=== PATIENT | male | born 1975 | race Hispanic/Latino ===

== ENCOUNTER 2021-03-03 06:48 | Inpatient (IN) | payer BC ==
[2021-03-03] VITALS (11 sets, daily range): BP systolic 127–175; BP diastolic 72–93
--- NOTE | 2021-03-03 06:50 | NUR ---
PT ARRIVED VIA EMS - DIRECT BED TO ROOM 10.
--- NOTE | 2021-03-03 07:10 | NUR ---
REPORT GIVEN TO DEVIN SCHULTZ AND DR. CLEMENT
[2021-03-03 08:40] LABS: HEMATOCRIT 45.7 % (39.0-50.0); HEMOGLOBIN 15.3 g/dl (14.0-18.0); IMMATURE GRANULOCYTES 0.4 % (0.0-5.0); MEAN CELL VOLUME 92.5 fL CALC (80.0-100.0); MEAN CORPUSCULAR HGB CONC 33.5 g/dL CAL (32.0-36.0); NEUT# 4.35 thou/uL (1.82-7.42); RED BLOOD COUNT 4.94 mill/uL (4.70-6.10); RED CELL DISTRI WIDTH 13.5 % (11.5-15.5)
[2021-03-03 08:56] LABS: ALBUMIN 3.8 g/dL (3.2-5.0); ALKALINE PHOSPHATASE 80 u/l (38-126); ANION GAP 14 (6-22 (CALC)); BILIRUBIN, TOTAL 1.1 mg/dL (0.0-1.4); BUN 16 mg/dL (9-20); BUN/CREATININE RATIO 18 (12-20 (CALC)); CARBON DIOXIDE 30 mmol/l (22-30); CHLORIDE 94 mmol/l (95-108); CREATININE 0.9 mg/dL (0.7-1.3); GFR > 60 ML/MIN (>=60 (CALC)); GFR FOR AFR.AMER. > 60 ML/MIN (>=60 (CALC)); POTASSIUM 3.1 mmol/l (3.5-5.1); SGOT/AST 47 u/l (17-59); SODIUM 135 mmol/l (137-146); TOTAL PROTEIN 7.5 g/dL (6.3-8.2)
[2021-03-03 09:07] LABS: MYOGLOBIN 16 ng/mL (0 - 121)
--- NOTE | 2021-03-03 09:39 | NUR ---
Reassessment of patient completed. No distress noted.
[2021-03-03 10:15] LABS: ACT PARTIAL THROMBO TIME 26.5 SECONDS (20.0-32.5); INTERNATIONAL NORMALIZED RATIO 1.1 RATIO (0.7-1.3); PROTHROMBIN TIME 11.1 SECONDS (9.0-12.5)
--- NOTE | 2021-03-03 11:16 | NUR ---
REPORT CALLED TO ICU, DR. LAURYN MANZANO
--- NOTE | 2021-03-03 12:05 | NUR ---
PATIENT CAME ONTO FLOOR FROM ER.
--- NOTE | 2021-03-03 12:10 | NUR ---
Admission Note Report Given to: SBAR PRINTED TO FLOOR Transported by: Wheelchair X Stretcher Transported with: X Nurse Transporter X Patent IV X O2 X Waterproofer Helper Location: X ICU MS2
--- NOTE | 2021-03-03 12:24 | NUR ---
transported pt to icu from er. pt sudha well. placed on vapotherm upon arrival to icu. titrated as per pt spo2 and wob. campus president to monitor,
--- NOTE | 2021-03-03 12:30 | NUR ---
PATIENT A/O X3. SETTLED DOWN IN BED. DENIES PAIN AT THIS MOMENT. DOES COMPLAIN OF SLIGHT DIZZINESS DUE TO WALKING FROM STRETCHER TO BED. VITALS SIGNS ARE WITHIN NORMAL RANAGE. RT AT BEDSIDE ADJUSTING VAPOTHERM. SOB NOTED. DMINISHED LUNG SOUNDS THROUGH OUT. FOLLOWS COMMANDS. RUNS SINUS TACH WHEN GETTING UP TO BED FROM STRETCHER AND DID BECOME SOB WITH SATS MID TO UPPER 80'S WITH WALKING. STEADY GAIT, STAND BY ASSIST. BEDSIDE COMMODE AT BEDSIDE. SAFETY SOCKS PLACED ON FEET PRIOR TO WALKING. ACTIVE BOWEL SOUNDS. NO OPEN AREAS AT THIS TIME. NO EDEMA PRSENT. STRONG PULSES. STRONG EQUAL HAND ACCOUNTS RECEIVABLE ANALYST. SPOKE TO WHILE ASSESSING PATIENT GAVE HER THE CODE TO CALL US WHEN SHE WANTS UPDATES. REVIWED CALL LIGHT AND PATIENTS RIGHT WITH PATIENT AT BEDSIDE. PATIENT STATED HE UNDERSTOOD AND SIGNED THAT HE AGREED TO THE CALL DO NOT FALL SHEET. FILLED OUT BELONGINGS SHEET. PATIENT IS COVID+ WILL REMAIN IN NEGATIVE PRESSURE ROOM. HAS DRY NON PRODUCTIVE COUGH. SAFETY MEASURES IN PLACE. CALL LIGHT IN REACH. WILL CONTINUE TO MONITOR.
[2021-03-03 12:46] LABS: URINE BILIRUBIN - DIPSTICK NEGATIVE (NEGATIVE); URINE BLOOD DIPSTICK NEGATIVE (NEGATIVE); URINE COLOR YELLOW; URINE GLUCOSE - DIPSTICK 250 mg/dL (NEGATIVE); URINE KETONE 15 mg/dL (NEGATIVE); URINE LEUK ESTERASE NEGATIVE (NEGATIVE); URINE PROTEIN - DIPSTICK TRACE mg/dL (NEG-TRACE)
[2021-03-03 12:57] LABS: URINE NITRITE - DIPSTICK NEGATIVE (Negative)
--- NOTE | 2021-03-03 14:00 | NUR ---
PATIENT IS SITTING UP IN BED WATCHING TV
--- NOTE | 2021-03-03 15:21 | NUR ---
PT note Patient is screened for PT intervention and no needs are identified at this time
--- NOTE | 2021-03-03 16:00 | NUR ---
PATIENT'S CALLED, SPOKE TO HER AFTER SHE GAVE ME THE CODE.
[2021-03-03] MEDS ORDERED: [UNRECOGNIZED DRUG - OTHER] PO (17:15)
[2021-03-03] MEDS ORDERED: IS-ZC 50 50 MG1 TAB (17:16)
--- NOTE | 2021-03-03 18:00 | NUR ---
WATCHING TV AND EATING DINNER
--- NOTE | 2021-03-03 19:00 | NUR ---
PT IN HIGH FOWLERS POSITION WATCHING TV. REPORTS FEELING "MUCH BETTER." VAPOTHERM @25L 75% FIO2. OXYGEN SAT 97% AT THIS TIME. ASSESSMENT COMPLETED, LUNG SOUNDS DIMINISHED WITH COURSE SOUNDS TO RLL. PT LOCX4. I EDUCATED HIM NO IS USE AND ASKED HIM TO DEMONSTRATE, UNMEASURABLE BREATHS AT THIS TIME. I RE-EDUCATED THE USE AND IMPORTANCE OF THIS TEACHING ONE BREATH PER 10 MINUTES EVEN IF IT MAKES HIM COUGH, PT REMAINED QUIET. I EDUCATED HIM ON MOVING AROUND THE ROOM, GETTING TO RECLINER AND LAYING PRONE FOR SELF HELP. HE REPORTED THAT HE SLEEPS ON HIS STOMACH, I TOLD HIM THAT THIS WILL REALLY HELP AND EXPLAINED WHY AND HOW THIS AFFECTS THE OXYGEN INTAKE AND LUNGS. HE VERBALIZED UNDERSTANDING. IN RESPONSE TO MOVING AROUND THE ROOM ENCOUARGEMENT, HE STATED "I HAVE ALL OF THE TUBES," I ADVISED HIM TO CALL ANYTIME HE FEELS LIKE HE CAN MOVE AROUND AND WE WILL HELP HIM NAVIGATE MOVING. PT IS SPITTING WHITE THICK SPUTUM WHEN COUGHING.
--- NOTE | 2021-03-03 20:10 | NUR ---
ICEWATER PROVIDED AT THIS TIME.
--- NOTE | 2021-03-03 21:30 | NUR ---
PT MEDICATED ORDERS PROVIDE AND FOR COUGH. DENIES NEED FOR TYLENOL AT THIS TIME. PT SITTING LOW FOWLERS WATCHING TV. ENCOURAGED HIM TO MOVE AROUND AND TO PRONE. ASKED HIM TO DEMONSTRATE IS USE, 500 BREATH MEASURED AT THIS TIME. DENIES ANY OTHER NEEDS.
[2021-03-04] VITALS (9 sets, daily range): BP systolic 111–152; BP diastolic 63–98
--- NOTE | 2021-03-04 | NUR ---
IVF REPLENISHED. PT IS AWAKE IN LOW FOWLERS IN THE BED WATCHING TV.
--- NOTE | 2021-03-04 01:35 | NUR ---
PT SLEEPING AT THIS TIME. OXYGEN SAT'S STABLE >92%. VAPOTHERM @20L/65%
--- NOTE | 2021-03-04 03:00 | NUR ---
PT IN HIGH FOWLERS POSITION WITH EYES CLOSED. RESP EVEN WITH SHALLOW BREATHS. NO DISTRESS NOTED AT THIS TIME. OXYGEN SAT >92 SUSTAINED.
--- NOTE | 2021-03-04 04:20 | NUR ---
PT COULD BE HEARD COUGHING AND SOUNDING DISTRESSED, UPON ENTERING THE ROOM HE WAS FOUND BY STEAM PLANT CONTROL ROOM OPERATOR TO BE SITTING ON THE SIDE OF THE BED COUGHING AND GASPING FOR AIR. VAPOTHERM NC WAS OFF AND OXYGEN SAT LEVELS HAD DROPPED TO 54% HE WAS ATTEMPTING TO GET TO BSC. I TOLD HIM WAIT WHILE I PLACED NC BACK ON, HE INSISTED ON GETTING TO BSC WHERE I PLACED NC AND COACHED NASAL BREATHING WITH PURSED EXHALES. OXYGEN SAT RECOVERED QUICKLY TO 90% AFTER SITTING ON BSC FOR A FEW MINUTES WITH STEAM PLANT CONTROL ROOM OPERATOR AT SIDE WE TRANSITIONED HIM TO THE BED. PT PLACED IN PRONE POSITION TO ASSIST IN RECOVERY. OXYGEN SAT LEVEL IS READING 93% UPON MY LEAVING THE ROOM. HE WAS ALSO ASSISTED IN PO FLUIDS PRIOR TO MY LEAVING THE ROOM AND BSC EMPTIED OF 500CC OF DARK YELLOW URINE ALONG WITH MODERATE AMOUNT OF LIGHT BROWN LOOSE STOOL.
[2021-03-04 05:07] LABS: HEMATOCRIT 41.7 % (39.0-50.0); HEMOGLOBIN 13.8 g/dl (14.0-18.0); IMMATURE GRANULOCYTES 0.9 % (0.0-5.0); MEAN CELL VOLUME 93.7 fL CALC (80.0-100.0); MEAN CORPUSCULAR HGB CONC 33.1 g/dL CAL (32.0-36.0); NEUT# 2.59 thou/uL (1.82-7.42); RED BLOOD COUNT 4.45 mill/uL (4.70-6.10); RED CELL DISTRI WIDTH 13.7 % (11.5-15.5)
--- NOTE | 2021-03-04 05:40 | NUR ---
RESP AT BEDSIDE. VAPOTHERM REDUCED TO 60% @20L. NO S/O DISTRESS, PT APPEARS TO BE SLEEPING, V/S STABLE, OXYGEN SAT 98%
--- NOTE | 2021-03-04 06:10 | NUR ---
PT SLEEPING ON LEFT SIDE, SUPINE. OXYGEN 96% AND V/S STABLE. NSR60'S IVP CLEARED. CALL LIGHT REMAINS W/IN REACH.
[2021-03-04 07:27] LABS: ALKALINE PHOSPHATASE 58 u/l (38-126); BUN 14 mg/dL (9-20); BUN/CREATININE RATIO 21 (12-20 (CALC)); C-REACTIVE PROTEIN 7.9 mg/dL (0-0.9); CARBON DIOXIDE 25 mmol/l (22-30); CREATININE 0.6 mg/dL (0.7-1.3); GFR > 60 ML/MIN (>=60 (CALC)); GFR FOR AFR.AMER. > 60 ML/MIN (>=60 (CALC)); SGOT/AST 36 u/l (17-59); SODIUM 139 mmol/l (137-146)
[2021-03-04 07:30] LABS: ANION GAP 12 (6-22 (CALC)); BILIRUBIN, TOTAL 0.5 mg/dL (0.0-1.4); CHLORIDE 106 mmol/l (95-108); POTASSIUM 4.2 mmol/l (3.5-5.1)
--- NOTE | 2021-03-04 07:44 | NUR ---
PATIENT RESTING COMFORTABLY. NO SIGNS OR SYMPTOMS OF PAIN . VITALS RECOREDED
--- NOTE | 2021-03-04 09:08 | NUR ---
MD AT BEDSIDE TO SPEAK TO PATIENT. PATIENT AWAKE AND ALERT AND STATES THAT HE FEELS BEETER TODAY THAN HE FELT YESTERDAY.
--- NOTE | 2021-03-04 18:14 | NUR ---
PATIENT AWAKE AND ALERT. PATIENT STATES HE HAS NOT BEEN VERY HUNGRY TODAY. LEADS CHANGED TWICE. MAY NEED CHEST SHAVED FOR BETTER CONDUCTION.
--- NOTE | 2021-03-04 19:55 | NUR ---
[id number]:PATIENT TRIMMER PRESS CLIPPINGS LIGHT, REQUESTS ICE CREAM, PROVIDED. IS AWAKE, ORIENTED X4. ON VAPOTHERM FIO2 60%, 20 L/MIN H, SPO2 89%-94%. DOES BECOME SOB WITH EXERTION AND BEGINS TO COUGH, MOIST/WATCH REPAIR PERSON. NURSE ASSESSMENT PERFORMED. EDUCATED ON IS, PRONING, SITTING UP IN CHAIR DURING THE DAY, PURSE LIP BREATHING, PT UNDERSTANDS AND AGREES. [facility] SITE INTACT, NS INFUSING PROPERLY. REPORTS HE HAS LOW APPETITE. WAS ENCOURAGED TO EAT AND NOTIFIED HIM WE HAVE OTHER HOT DINNER MEALS IN THE [place] IF HE DOES NOT LIKE FOOD TRAY. USES URINAL AT BEDSIDE, VOIDS YELLOW/CLEAR URINE. REPORTS LAST BM 03/03/21. SR ON TELEMETRY, HR 80'S. NO EDEMA NOTED, SKIN INTACT, EXTREMETIES COOL/MOIST. INSPIRATORY WHEEZING POSTERIORLY. TOLERATES LOVENOX INJECTION. EATS BOTH ICE CREAM CUPS PROVIDED. ICED WATER AND ORANGE JUICES PROVIDED. DENIES PAIN. RESP RATE 30'S WITH EXERTION/SHALLOW. SITS IN HIGH NELSON'S. SELF REPOSITIONS. WAS OFFERED BATHE WITH WASH CLOTHS, REPORTS HE WOULD LIKE TO DO IT TOMORROW MORNING. CALL LIGHT WITHIN REACH.
--- NOTE | 2021-03-04 22:31 | NUR ---
PATIENT ON BRITANY LIGHT, REPORTS HE IS JACQUELYN TO LAY PRONE FOR THE NIGHT. PATIENT ABLE TO PRONE SELF, COPPER ROLLER HANDLER PRINTING WIRES AND IV TUBING ADJUSTED. URINAL EMPTIED. SPO2 95%-96%, VAPOTHERM SETTINGS UNCHANGED. SR ON TELEMETRY, HR 70'S. BP WNL. RESP RATE 16. CALL LIGHT WITHIN REACH.
[2021-03-05] VITALS (17 sets, daily range): BP systolic 96–184; BP diastolic 56–94
--- NOTE | 2021-03-05 00:47 | NUR ---
PT RADIOLOGIC TECHNICIAN LIGHT, REQUESTS ASSISTANCE TO TRANSFER TO BSC. ABLE TO TRANSFER BY HIMSELF. HAD MOD/LOOSE BM. SAT ON SIDE OF BED TO RECOVER FROM TRANSFER AND SOB, DRANK CUP OF WATER. DECIDES HE WANTS TO TO LAY ON HIS LEFT SIDE NOW. SPO2 95%. CALL LIGHT WITHIN REACH.
--- NOTE | 2021-03-05 04:14 | NUR ---
DATA GOVERNANCE ANALYST LEONARDO IN ROOM TO DRAW AM LABS.
--- NOTE | 2021-03-05 04:20 | NUR ---
PATIENT IS AWAKE, NEW IV STARTED ON LAC AND [facility] SITE REMOVED. PATIENT DOES START TO COUGH AND BECOMES SOB, ROBITUSSIN PROVIDED, SITS STARAIGHT UP TO USE URINAL AND DRINK WATER. WHEN COUGHING HR INCREASES TO LOW 100'S AND SPO2 DROPS TO 80'S, IS ABLE TO RECOVER WITHIN A FEW MINUTES WITH ENCOURAGEMENT OF PURSED LIP BREATHING TECHNIQUE. NO OTHER NEEDS AT THIS TIME. CALL LIGHT WITHIN REACH.
[2021-03-05 05:39] LABS: HEMATOCRIT 42.6 % (39.0-50.0); IMMATURE GRANULOCYTES 0.6 % (0.0-5.0); MEAN CELL VOLUME 95.3 fL CALC (80.0-100.0); MEAN CORPUSCULAR HGB 31.3 pG CALC (26.0-32.0); MEAN CORPUSCULAR HGB CONC 32.9 g/dL CAL (32.0-36.0); NEUT# 5.99 thou/uL (1.82-7.42); RED BLOOD COUNT 4.47 mill/uL (4.70-6.10); RED CELL DISTRI WIDTH 13.9 % (11.5-15.5)
[2021-03-05 05:57] LABS: ALKALINE PHOSPHATASE 62 u/l (38-126); ANION GAP 11 (6-22 (CALC)); BILIRUBIN, TOTAL 0.5 mg/dL (0.0-1.4); BUN 17 mg/dL (9-20); BUN/CREATININE RATIO 23 (12-20 (CALC)); C-REACTIVE PROTEIN 4.5 mg/dL (0-0.9); CARBON DIOXIDE 30 mmol/l (22-30); CHLORIDE 103 mmol/l (95-108); CREATININE 0.7 mg/dL (0.7-1.3); GFR > 60 ML/MIN (>=60 (CALC)); GFR FOR AFR.AMER. > 60 ML/MIN (>=60 (CALC)); POTASSIUM 4.6 mmol/l (3.5-5.1); SGOT/AST 46 u/l (17-59); SODIUM 139 mmol/l (137-146); TOTAL PROTEIN 5.9 g/dL (6.3-8.2)
--- NOTE | 2021-03-05 06:14 | NUR ---
PATIENT IS AWAKE, NO ACUTE DISTRESS SHOWN. NEW BAG IF IV FLUIDS INFUSING. NO COMPLAINTS OR NEEDS AT THIS TIME. CALL LIGHT WITHIN REACH.
--- NOTE | 2021-03-05 08:00 | NUR ---
PATIENT A/O X3, ABLE TO MAKE NEEDS KNOWN TO STAFF. DENIES PAIN AT THIS TIME. 3MM PERRLA EYES BILAT. CLEAR SPEECH. DIMINISHED LUNGS THROUGHOUT. ABDOMEN SOFT NONDISTENDED, ACTIVE BOWEL SOUNDS. O2 STS ARE DOING WELL. NO EDEMA PRESENT. STRONG PUSLES STATED HE IS THRISTY GAVE HIM SOME GATORADE. DIDN'T EAT BREAKFAST THIS AM STATED HE WANTED SYRUP AND DIETARY DID NOT BRING IT UP FOR US WHEN I CALLED DOWN AND ASKED. REQUESTED PRN COUGH MED. WILL BE GIVEN WITH REST OF 0900 MEDICATIONS. SAFETY MEASURES IN PLACE. CALL LIGHT IN REACH. WILL COTNINUE TO MONITOR.
--- NOTE | 2021-03-05 11:00 | NUR ---
PATIENT RECEIVED A COMPLETE BED BATH. BRUSHED HIS TEETH. LIENENS CHANGED.
--- NOTE | 2021-03-05 14:00 | NUR ---
PATIENT IS SITTING UP IN BED WATCHING TV.
--- NOTE | 2021-03-05 15:16 | NUR ---
PRELIMINARY BLOOD CULTURE RESULTS CALLED TO . 08/01 VIALS GROWING GRAM + COCCI NO NEW ORDERS
--- NOTE | 2021-03-05 16:00 | NUR ---
PATIENT USED THE BEDSIDE COMMODE AND HAD A SMALL FORMED BM.
--- NOTE | 2021-03-05 18:08 | NUR ---
EATING DINNER AT THIS TIME, GAVE HIM SOME ICE CREAM PER HIS REQUEST.
--- NOTE | 2021-03-05 20:52 | NUR ---
PATIENT IS AWAKE, EPOXY COATINGS INSTALLER LIGHT REQUESTS TO BE ASSISTED TO LAY PRONE. ABLE TO REPOSITION SELF, DOES BECOME SOB WITH EXERTION, DOES HAVE MOSIT DAIRY CATTLE FARMER COUGH. ROBITUSSIN PROVIDED. ABLE TO TOLERATE BEDTIME MEDS. NURSE ASSESSMENT PERFORMED, SPO2 96% LAYING PRIONE, ON VAPOTHERM AT 20 L/MINM AND FIO2 55% H. IV INTACT, NS INFUSING PROPERLY. VOIDS YELLOW/CLEAR URINE. DRINKS WATER. SB/SR ON TELEMETRY. RESP SHALLOW, RATE 20'S. NO OTHER EEDS AT THIS TIME. NO COMPLAINTS OF PAIN. CALL LIGHT WITHIN REACH.
[2021-03-06] VITALS (17 sets, daily range): BP systolic 128–172; BP diastolic 64–90
--- NOTE | 2021-03-06 02:58 | NUR ---
PATIENT LAYS ON HIS R-SIDE, RESTS WITH EYES CLOSED. NO ACUTE DISTRESS SHOWN. CALL LIGHT WITHIN REACH.
--- NOTE | 2021-03-06 05:01 | NUR ---
DRAFTER MECHANICAL LEONARDO IN ROOM TO OBTAIN AM LABS. PATIENT HAS ADVANCE AGENT COUGH.
--- NOTE | 2021-03-06 05:13 | NUR ---
MICROELECTRONICS ASSEMBLER LEONARDO REPORTS PATIENT VOMITTED ON FLOOR AFTER COUGHING. PATIENT SITS IN HIGH NELSON'S. DENIES NAUSEA, EMESESIS BAG PROVIDED. WET WASH CLOTH PROVIDED, OFFERED FOR HIM TO BRUSH HIS TEETH, REFUSES AT THIS TIME. DRINKS WATER. NO OTHER NEEDS AT THIS TIME. CALL LIGHT WITHIN REACH. SPO2 90%.
[2021-03-06 05:59] LABS: HEMATOCRIT 46.2 % (39.0-50.0); HEMOGLOBIN 15.3 g/dl (14.0-18.0); MEAN CELL VOLUME 95.1 fL CALC (80.0-100.0); MEAN CORPUSCULAR HGB 31.5 pG CALC (26.0-32.0); MEAN CORPUSCULAR HGB CONC 33.1 g/dL CAL (32.0-36.0); NEUT# 9.03 thou/uL (1.82-7.42); RED BLOOD COUNT 4.86 mill/uL (4.70-6.10); RED CELL DISTRI WIDTH 13.6 % (11.5-15.5)
[2021-03-06 06:25] LABS: ALBUMIN 3.2 g/dL (3.2-5.0); ALKALINE PHOSPHATASE 74 u/l (38-126); ANION GAP 14 (6-22 (CALC)); BILIRUBIN, TOTAL 0.7 mg/dL (0.0-1.4); BUN 17 mg/dL (9-20); BUN/CREATININE RATIO 27 (12-20 (CALC)); C-REACTIVE PROTEIN 2.7 mg/dL (0-0.9); CARBON DIOXIDE 26 mmol/l (22-30); CHLORIDE 104 mmol/l (95-108); CREATININE 0.7 mg/dL (0.7-1.3); GFR > 60 ML/MIN (>=60 (CALC)); GFR FOR AFR.AMER. > 60 ML/MIN (>=60 (CALC)); POTASSIUM 4.3 mmol/l (3.5-5.1); SGOT/AST 35 u/l (17-59); SODIUM 140 mmol/l (137-146); TOTAL PROTEIN 6.2 g/dL (6.3-8.2)
--- NOTE | 2021-03-06 06:45 | NUR ---
REPORT RECEIVED FROM JUNE SHEARER ASSUMED.
--- NOTE | 2021-03-06 07:10 | NUR ---
INDUSTRIAL THERAPIST AT BEDSIDE TO HELP PT UP TO BSC AND THEN WITH AM HYGIENE CARE AND ASSISTED PATIENT UP TO RECLINER.CALL LIGHT IN REACH.
--- NOTE | 2021-03-06 07:40 | NUR ---
PT SITTING UP IN RECLINER AT BEDSIDE. PT IS ALERT AND ORIENTED X3. SHIFT ASSESSMENT COMPLETED AT THIS TIME. IV PATENT X1. CALL LIGHT IN REACH. WILL CONTINUE TO MONITOR.
--- NOTE | 2021-03-06 08:00 | NUR ---
PATIENT SET UP FOR AM MEAL AT THIS TIME.
--- NOTE | 2021-03-06 08:53 | NUR ---
FINAL BLOOD CULTURE RESULTS CALLED TO REX GARSIA NO NEW ORDERS
--- NOTE | 2021-03-06 09:20 | NUR ---
DR BARNHART AT BEDSIDE AT THIS TIME.
--- NOTE | 2021-03-06 09:30 | NUR ---
AM MEDS GIVEN. PATIENT PHONED FROM CELL PHONE ASKED THAT I PROVIDE HER WITH UPDATE. UPDATE PROVIDED. VAPOTHERM DECREASED TO 50% FIO2 AND 15L. PT REPORTS BEING TIRED TODAY. EXPLAINED THAT HE HAS NOT BEEN OUT OF BED AND THIS IS THE FIRST DAY OUT OF BED. ENCOURAGED PATIENT TO REST IN CHAIR. PT VERBALIZED UNDERSTANDING. CALL LIGHT IN REACH. WILL CONTINUE TO MONITOR.
--- NOTE | 2021-03-06 11:30 | NUR ---
PT SET UP FOR NOON MEAL AT THIS TIME.
--- NOTE | 2021-03-06 12:03 | NUR ---
PT SITTING UP IN RECLINER AT BEDSIDE. RESP ARE EVEN AND UNLABORED. NO DISTRESS NOTED. CALL LIGHT IN REACH. WILL CONTINUE TO MONITOR.
--- NOTE | 2021-03-06 12:41 | NUR ---
VAPOTHERM FIO2 DECREASED TO 45%. O2 SATS REMAIN GREATER THEN 94%. OFFERRED TO ASSIST PATIENT TO GET BACK IN BED. PT DECLINED STATED HE WAS FEELING BETTER SITTING UP. CALL LIGHT IN REACH. WILL CONTINUE TO MONITOR.
--- NOTE | 2021-03-06 14:00 | NUR ---
PT SITTING UP IN RECLINER AT BEDSIDE AT THIS TIME. FIO2 DECREASED 40% AT THIS TIME. CALL LIGHT IN REACH. WILL CONTINUE TO MONITOR.
--- NOTE | 2021-03-06 16:10 | NUR ---
PT SEATED UP IN RECLINER WATCHING TV. RESP ARE EVEN AND UNLABORED. NO DISTREDD NOTED. CALL LIGHT IN REACH. WILL CONTINUE TOMONITOR.
--- NOTE | 2021-03-06 17:00 | NUR ---
OXYGEN TITRATED DOWN TO 12 LITERS. PT REPORTS FEELING BETTER THIS AFTERNOON. CALL [facility] IN REACH. WILL CONTINUE TO MONIOTR.
--- NOTE | 2021-03-06 18:11 | NUR ---
PT SEATED UP IN RECLINER. RESP are even and unlabored. no distress noted. call light in reach. will continue to monitor.
--- NOTE | 2021-03-06 19:50 | NUR ---
sitting in bedside chair watching tv. denies resp diff. spoke of "feel better." o2 cont 12 l/m 40% per vapotherm. plant breeder shows sinus rhythm. #22 lac. ns infusing @ 100cchr. po fluids taken well. voids per urinal. fall & air/contact precautions cont.
--- NOTE | 2021-03-06 21:15 | NUR ---
assisted to bed per request per provider network manager. sudha well.
[2021-03-07] VITALS (10 sets, daily range): BP systolic 112–165; BP diastolic 64–87
--- NOTE | 2021-03-07 00:01 | NUR ---
up to bsc. no distress. financial quantitative analyst shows sinus rhythm hr 92.
--- NOTE | 2021-03-07 02:00 | NUR ---
resting quietly. resps even & unlabored. no apparent distress.
--- NOTE | 2021-03-07 04:00 | NUR ---
eyes closed. no distress. health aide shows sinus rhythm hr 64.
--- NOTE | 2021-03-07 05:32 | NUR ---
lab here. blood drawn.
[2021-03-07 06:28] LABS: ALBUMIN 2.7 g/dL (3.2-5.0); ALKALINE PHOSPHATASE 59 u/l (38-126); ANION GAP 11 (6-22 (CALC)); BILIRUBIN, TOTAL 0.6 mg/dL (0.0-1.4); BUN 16 mg/dL (9-20); BUN/CREATININE RATIO 26 (12-20 (CALC)); CARBON DIOXIDE 26 mmol/l (22-30); CHLORIDE 105 mmol/l (95-108); CREATININE 0.6 mg/dL (0.7-1.3); GFR > 60 ML/MIN (>=60 (CALC)); GFR FOR AFR.AMER. > 60 ML/MIN (>=60 (CALC)); POTASSIUM 4.1 mmol/l (3.5-5.1); SGOT/AST 24 u/l (17-59); SODIUM 139 mmol/l (137-146); TOTAL PROTEIN 5.5 g/dL (6.3-8.2)
--- NOTE | 2021-03-07 06:45 | NUR ---
REPORT RECEIVED FROM CARMEL THOMPSON. CARE ASSUMED.
--- NOTE | 2021-03-07 07:45 | NUR ---
INTERNET TECHNOLOGY MANAGER ASSISTED PT UP TO CHAIR AT BEDSIDE.
--- NOTE | 2021-03-07 08:00 | NUR ---
PT SEATED UP IN RECLINER AT BEDSIDE. PT IS ALERT AND ORIENTED X3. SHIFT ASSESSMENT COMPLETED AT THIS TIME. IV PATENT X1. PT ON VAPOTHERM 12L 40%. DISCUSSED PLAN THAT AFTER BREAKFAST TO TRY TO SWITCH TO HI STONE NASAL CANNULA. PATIENT STATES HE WOULD LIKE TO TRY THAT WELL. CALL LIGHT IN REACH. WILL CONTINUE TO MONITOR.
--- NOTE | 2021-03-07 09:43 | NUR ---
PT IS ON 10L SAT 98%
--- NOTE | 2021-03-07 09:53 | NUR ---
DR BARNHART AT BEDSIDE AT THIS TIME.
--- NOTE | 2021-03-07 11:06 | NUR ---
PT IS ON 10L SAT 98%
--- NOTE | 2021-03-07 11:10 | NUR ---
CORRECTION PT IS ON 8L HFNC SAT 98%
--- NOTE | 2021-03-07 12:00 | NUR ---
PT SEATED UP IN RECLINER. SET UP FOR NOON MEAL AT THIS TIME. VSS ON MONITOR. CALL LIGHT IN REACH. WILL CONTINUE TO MONITOR.
--- NOTE | 2021-03-07 13:30 | NUR ---
O2 DECREASED TO 6L HFNC O2 SATS REMAIN AT 98%. PT PROVIDED COVID VACCINE INFORMATION FROM PHARMACY. VSS ON MONITOR. CALL LIGHT IN REACH. WILL CONTINUE TO MONITOR.
--- NOTE | 2021-03-07 16:00 | NUR ---
PT SITTING UP IN CHAIR WATCHING TV. RESP ARE EVEN AND UNLABORED. NO DISTRESS NOTED. CALL LIGHT IN REACH WILL CONTINUE TO MONITOR.
--- NOTE | 2021-03-07 16:10 | NUR ---
PT IS ON 6L SAT 97% IN CHAIR.
--- NOTE | 2021-03-07 18:22 | NUR ---
PT SITTING UP IN RECLINER AT BEDSIDE EATING PM MEAL. VSS ON MONITOR. O2 REMAINS AT 6L HF NC. CALL LIGHT IN REACH. WILL CONTINUE TO MONITOR.
--- NOTE | 2021-03-07 20:00 | NUR ---
sitting in recliner watching tv & using cell phone. denies resp distress. o2 cont 6 l/m per high flow cannula. hall monitor shows sinus rhythm hr 82. #22 lac saline lock. po fluids taken well. voids per urinal. fall & air/contact precautions cont.
--- NOTE | 2021-03-07 22:00 | NUR ---
assisted to bed per request. sudha well.
[2021-03-08] VITALS (10 sets, daily range): BP systolic 116–143; BP diastolic 62–87
--- NOTE | 2021-03-08 00:01 | NUR ---
eyes closed. no distress. monitor car operator shows sinus manuel hr 42.
--- NOTE | 2021-03-08 02:00 | NUR ---
resting quietly. resps even & unlabored. no apparent distress.
--- NOTE | 2021-03-08 04:00 | NUR ---
eyes closed. no distress. threat monitoring analyst shows sinus manuel hr 58.
--- NOTE | 2021-03-08 05:39 | NUR ---
lab here. blood drawn.
[2021-03-08 06:13] LABS: HEMATOCRIT 42.2 % (39.0-50.0); HEMOGLOBIN 14.2 g/dl (14.0-18.0); IMMATURE GRANULOCYTES 3.6 % (0.0-5.0); MEAN CELL VOLUME 92.1 fL CALC (80.0-100.0); MEAN CORPUSCULAR HGB CONC 33.6 g/dL CAL (32.0-36.0); NEUT# 6.96 thou/uL (1.82-7.42); RED BLOOD COUNT 4.58 mill/uL (4.70-6.10); RED CELL DISTRI WIDTH 13.3 % (11.5-15.5)
[2021-03-08 06:41] LABS: ALBUMIN 2.8 g/dL (3.2-5.0); ALKALINE PHOSPHATASE 60 u/l (38-126); ANION GAP 13 (6-22 (CALC)); BILIRUBIN, TOTAL 0.6 mg/dL (0.0-1.4); BUN 17 mg/dL (9-20); BUN/CREATININE RATIO 27 (12-20 (CALC)); CARBON DIOXIDE 25 mmol/l (22-30); CHLORIDE 104 mmol/l (95-108); CREATININE 0.6 mg/dL (0.7-1.3); GFR > 60 ML/MIN (>=60 (CALC)); GFR FOR AFR.AMER. > 60 ML/MIN (>=60 (CALC)); POTASSIUM 4.2 mmol/l (3.5-5.1); SGOT/AST 18 u/l (17-59); SODIUM 137 mmol/l (137-146); TOTAL PROTEIN 5.6 g/dL (6.3-8.2)
--- NOTE | 2021-03-08 13:06 | NUR ---
O2 SAT ON 3L IS 97%.
--- NOTE | 2021-03-08 17:19 | NUR ---
TRANSFERRED SAFELY TO [facility] ROOM 287 VIA W/C. GREETED BY RECEIVING NURSE.
--- NOTE | 2021-03-08 17:20 | NUR ---
PATIENT TRANSFERED FROM ICU TO MED SURG AT THIS TIME. PATIENT GIVEN ROOM ORIENTATION. PATIENT STATES HE HAS NO PAIN ON NEEDS CURRENTLY. O2 IS ON AT 3 LITERS. SIDERAILS ARE UP X 2 CALL LIGHT IS WITHIN REACH.
--- NOTE | 2021-03-08 17:21 | NUR ---
CALL RECIEVED FROM DEVIN RICHMOND N ICU STATING PT WS TO BE TRANSFERED TO [facility] WITH NO TELE PER DR BARNHART. ORDERS FAXED TO REGISTRATION.
--- NOTE | 2021-03-08 20:00 | NUR ---
PATIENT SITTING UP IN CHAIR. O2 VIA N/C IN PLACE. RESPIRATIONS EVEN AND UNLABORED. HR REG. NO COMPLAINTS. VAD S/L. PATIENT REPORTS BEING S/L SINCE LAST NIGHT. EATING AND DRINKING WELL. BED IN LOW POSITION. CALL LIGHT WITHIN REACH. ASSESSMENT COMPLETED AND CHARTED.
--- NOTE | 2021-03-09 00:02 | NUR ---
PATIENT RESTING QUIETLY. NO COMPLAINTS.
--- NOTE | 2021-03-09 01:27 | NUR ---
RESTING QUIETLY. NO COMPLAINTS. RESPIRATIONS NONLABORED.
[2021-03-09 03:41] VITALS: BP 129/59
--- NOTE | 2021-03-09 04:13 | NUR ---
PATIENT SLEEP PRONE WHEN VITAL SIGNS TAKEN. NO COMPLAINTS.
--- NOTE | 2021-03-09 07:25 | NUR ---
PATIENT SITTING UP IN CHAIR AT THIS TIME. O2 ON AT 3L AND SPO2 IS CURRENTLY 95%. PATIENT DOES EXHIBIT DRY COUGH AT THIS TIME. LUNG VILLA ARE DIMINISHED IN LOWER AND MIDDLE BASES. PATIENT DENIES ANY PAIN. SIDERAILS ARE UP X 2 AND CALL LIGHT WITHIN REACH. LENS MATCHER DONE SEE INTERVENTIONS.
--- NOTE | 2021-03-09 12:18 | NUR ---
PATIENT SITTING UP IN CHAIR AT THIS TIME DENIES ANY NEEDS AND OR PAIN O2 IS CURRRENTLY OFF AND SPO2 IS 94%. DR. GAONA IN TO SEE PATIENT AT THIS TIME. PCR TEST PREFORM AND SENT TO LAB. CALL LIGHT WITHIN REACH
[2021-03-09] MEDS ORDERED: DEXAMETHASON6 MG PO (12:21)
[2021-03-09] MEDS ORDERED: ASPIRIN REGULA325 M1 PO (12:21)
--- NOTE | 2021-03-09 12:23 | NUR ---
SIX MINUTE WALK TEST DONE AT THIS TIME. 02 REMOVED FOR 30 MIN. AND SPO2 WAS 97% WALKING WITHOUT O2 SPO2 DROPPED TO 95%. AMULATING WITH 02 ON AND SPO2 WENT TO 96% AND FINAL RESTING SPO2 IS 96%. FINDINGS OF THIS WALK TEST REPORTED TO VICTORIANO NICOLAS.
--- NOTE | 2021-03-09 13:39 | NUR ---
PATIENT D/C AT THIS TIME PATIENT UNDERSTANDS D/C INSTRUCTIONS AT THIS TIME.
--- NOTE | 2021-03-09 16:50 | NUR ---
Discharge instructions given. Patient verbalizes understanding of same. Discharged in stable condition via Wheelchair to Home with family. All belongings sent with pt.
--- NOTE | 2021-03-13 10:59 | NUR ---
Pneumonia post discharge follow up call completed today. Pt. states he is doing fairly well. No fever, chills, or excessive SOB since dishcharge. Pt. obtained all medication prescribed and has taken without issue. Follow up appt. is scheduled for tomorrow afternoon, 03/14. Pt. had questions regarding patient portal which were addressed. No other questions or concerns voiced by patient at this time.
== END 2021-03-09 16:50 | disposition home or self-care (01) | DRG 177 ==
LOC: ED 06:48 → ED-I 10:17 → ED 10:29 → ICU 10:30 → MS2 03-08 17:31
PROVIDERS: Emergency Medicine; Nurse Practitioner; ADMIT Hospitalist; ATTEND Internal Medicine
PROC: XW033E5 Introduction of Remdesivir Anti-infective into Peripheral Vein, Percutaneous Approach, New Technology Group 5 (ICD-10-PCS; principal; 2021-03-03)
DX: U07.1 COVID-19 (principal); J12.82 Pneumonia due to coronavirus disease 2019; J96.01 Acute respiratory failure with hypoxia; E87.2 Acidosis; E87.6 Hypokalemia; E86.0 Dehydration
CPT/HCPCS: J0131; J1650; Q9967